=== PATIENT | female | born 1965 | race Caucasian/White ===

== ENCOUNTER 2016-11-18 11:25 | Emergency (ER) | payer MEDICARE, MEDICAID ==
[~2016-11-18] VITALS: Ht 162.6 cm; Wt 113.4 kg
[~2016-11-18 11:25] MED LIST: ALPR0.5T PO; AML5T PO; ASPI-264 PO; BACL20TA PO; FUR40T PO; HYDR-3682 PO; IBUP800T24 PO; NOR10T PO; OXCA150T3 PO; PANT40TA2 PO; QUET150T2 PO
[2016-11-18 11:42] VITALS: BP 136/100
[2016-11-18] MEDS ORDERED: HYDROmorphone HCL 2 MG/ML VL IM ONE (12:15)
[2016-11-18] MEDS ORDERED: ONDANSETRON HCL 4 MG/2 ML VIAL IM ONE (12:15)
== END 2016-11-18 14:17 | disposition home or self-care (01) ==
LOC: ER 11:33
DX: S80.02XA Contusion of left knee, initial encounter (principal); S82.142G Displaced bicondylar fracture of left tibia, subsequent encounter for closed fracture with delayed healing; M19.90 Unspecified osteoarthritis, unspecified site; E11.9 Type 2 diabetes mellitus without complications; I10 Essential (primary) hypertension; Z88.2 Allergy status to sulfonamides; Z88.8 Allergy status to other drugs, medicaments and biological substances; Z88.6 Allergy status to analgesic agent; X58.XXXA Exposure to other specified factors, initial encounter; Y93.89 Activity, other specified; Y99.8 Other external cause status; Y92.89 Other specified places as the place of occurrence of the external cause
CPT/HCPCS: 29505; 73590; 73700; 96372; 99284; J1170; J2405